=== PATIENT | female | born 1955 | race Caucasian/White ===

== ENCOUNTER → 2016-11-23 | Day surgery (SDC) | payer OTHER ==
--- NOTE | 2016-11-20 14:41 | TH ---
cc: KANDI SMITH M.D. DATE: DATE OF : 1955 PROCEDURE TO BE PERFORMED Removal of tissue assistant athletic trainer and placement of breast implants, style 410 MX, 550. HISTORY OF PRESENT ILLNESS This is a 61-year-old female who underwent mastectomies on 08/13/2016. She was properly expanded and now is ready to have the expanders removed. PAST MEDICAL HISTORY Otherwise remarkable for hysterectomy and lumpectomies in the past. MEDICATIONS 1. Biotin. 2. Vitamin-D3. HABITS Benign. REVIEW OF SYSTEMS Otherwise unremarkable. PHYSICAL EXAMINATION GENERAL APPEARANCE: The patient is a well-developed female in no acute distress. Body habitus is within normal limits. There appear to be no deformities. Appears to have attention to grooming. HEENT: Conjunctiva and lids are within normal anatomical limits. The pupils are reactive to light and accommodation, size and symmetry. There is no evidence of exudate, hemorrhage, or vessel change. The external inspection of the ears and nose fails to demonstrate any pathology, scars, lesions, or masses. Nasal mucosa, septum, and turbinates appear to be well-hydrated as well as the lips and gums. No evidence of masses in the hypopharynx or submental area. CHEST: The patient shows no evidence of intercostal retractions. LUNGS: Clear to auscultation without any abnormal sounds or rubs. CARDIOVASCULAR: The patient has a normal heart rate and rhythm. There is no evidence of noted carotid bruits. Femoral pulses and pedal pulses in the extremities are also within normal limits. ABDOMEN: Soft with no evidence of masses or tenderness. Unable to palpate the liver or spleen. No evidence of hernia. MUSCULOSKELETAL: Appears to be reasonable range of motion of the head, neck, spine, ribs, pelvis, right upper extremity, left upper extremity, right lower extremity, and left lower extremity. The muscle strength and tone appears to be equal and within accepted limits. SKIN: There are no rashes, lesions, or ulcers on the trunk, back or extremities. NEUROLOGICAL: Examination is grossly normal. PSYCHIATRIC: The patient appears to have good orientation of time, place, and person. Does not appear to have any mood affects of depression, anxiety, or agitation. BREASTS: The patient does have well-placed tissue expanders and a Port-A-Cath in the left subclavian vein. PLAN The plan is removal of tissue expanders and placement of implants. The risks and possible complications were discussed with the patient. MD EVA Quintanilla/HANSEL /2:17 PM /2:32 PM
[~2016-11-23] MED LIST: ACETAMINOPHEN 1000 MG/100 ML VIAL IV ONE; ACETAMINOPHEN/HYDROcodone 325 MG/5 MG TAB ONE; ADVI200C5 PO; BACITRACIN IM FOR SOLN 50,000 UNIT VIAL ONE; BIOT7500 PO; BUPIVACAINE/EPINEPHRINE 0.25% 50 ML VIAL ONE; CHOL5000 PO; CYMB60CA PO; GENTAMICIN SULFATE 80 MG/2 ML VIAL ONE; LACTATED RINGER'S 1000 ML INJ 1,000 ML ONE; LIDOCAINE 1%/EPINEPHrine 1:100,000 SOLN 50 ML VIAL ONE; MIDAZOLAM HCL 2 MG/2 ML VIAL ONE; ONDANSETRON HCL 4 MG/2 ML VIAL IV PUSH ONE; PROPOFOL 200 MG/20 ML AMP IV ONE; SODIUM CHLORIDE 0.9% 20 ML VIAL ONE; TRAM50TA PO; VITA250T3 PO; ceFAZolin INJ 1,000 MG VIAL ONE
--- NOTE | 2016-11-23 08:59 | TN ---
cc: KANDI SMITH M.D. DATE OF SURGERY: 11/20/2016 PREOPERATIVE DIAGNOSIS Status post bilateral mastectomy with further tissue expansion reconstruction. POSTOPERATIVE DIAGNOSIS Status post bilateral mastectomy with further tissue expansion reconstruction. PROCEDURE Second stage removal and replacement of implants for a style 410 MX Natrelle 550. Serial number of the right breast implant is [id number]. Serial number of the left breast implant is [id number]. DETAILS OF PROCEDURE She was properly consented, marked and anesthetized. The skin was sterilized with Betadine solution and sterile draping applied. I applied also 30 cc of 1% lidocaine with epinephrine mixed with 0.25% Marcaine in a 2:1 ratio. Through a previous inframammary incision a trapdoor incision was created and the tissue on call pharmacy technician was encountered, deflated and removed. On the right breast lateral inferior capsulorrhaphies were done, whereas on the left breast lateral capsulorrhaphies were done and inferior capsulotomies were performed. We also performed some radial capsulotomies where needed in order to accommodate the implant as best we could. I isolated the skin at this point and after irrigating the pocket with triple-antibiotic solution, I proceeded and inserted the implant in the usual no-touch technique. Best symmetry was achieved after doing some blunt dissections as well as some cautery dissections of the capsule. With this we closed the wound in multiple 2-0 Monocryl suture layers at the capsule, Vlad's fascia, dermis and a subcuticular layer as well. Steri-Strips were applied after the Mastisol. A snug brassiere was applied after dressings. Good viability of tissue was noted at the end of the case. The patient was awakened and extubated in the operating room, transferred back to the post-anesthesia care unit in stable condition. There were no complications appreciated. The patient tolerated the procedure fairly well. MD EVA Quintanilla/HANSEL /8:37 AM /8:43 AM CHRISTINA
== END | disposition home or self-care (01) ==
LOC: ESDC 06:10
PROVIDERS: ATTEND Plastic Surgery
DX: Z42.1 Encounter for breast reconstruction following mastectomy (principal); Z85.3 Personal history of malignant neoplasm of breast; Z90.13 Acquired absence of bilateral breasts and nipples
CPT/HCPCS: 00402; 19342; C1789; J0131; J0690; J1580; J2250; J2405; J3010; J7120